=== PATIENT | male | born 1960 | race Caucasian/White ===

== ENCOUNTER 2022-05-28 08:18 | Emergency (ER) | payer OTHER, SELFPAY ==
[2022-05-28 08:24] VITALS: BP 179/87; PULSE 63; RESP 18; TEMP 36.6; O2SAT 95; BMI 31.9
--- NOTE | 2022-05-28 08:27 | ECG_ITS ---
[facility] Test Date: 2022-05-28 Pat Name: Ricki Urbano Department: Room: Gender: Male Rinkman: : 1960 Requested By: Suraj Aguilar Order Number: [id number] Melyssa MD: Kyle Kincaid M.D. Measurements Intervals Kirk Rate: 61 P: 43 MO: 167 QRS: 26 QRSD: 89 T: 60 QT: 390 QTc: 396 Interpretive Statements SINUS RHYTHM No previous ECG available for comparison Electronically Signed On 05-28-2022 21:58:22 CDT by Kyle Kincaid M.D. [email or web address]
[2022-05-28 08:28] VITALS: BP 158/87; BP 173/80; BP 185/90; PULSE 66; PULSE 70; PULSE 76
--- NOTE | 2022-05-28 08:28 | XRR_ITS ---
PROCEDURE INFORMATION: Exam: XR Chest Exam date and time: 05/28/2022 8:50 AM Age: 62 years old Clinical indication: Cough and dyspnea; Additional info: Dyspnea/cough TECHNIQUE: Imaging protocol: Radiologic exam of the chest. Views: 1 view. COMPARISON: No relevant prior studies available. FINDINGS: Lungs: Unremarkable. No consolidation. Pleural spaces: Unremarkable. No pleural effusion. No pneumothorax. Heart/Mediastinum: Unremarkable. No cardiomegaly. Bones/joints: Unremarkable. XR/XR chest 1V portable [id number] IMPRESSION: No acute findings.
--- NOTE | 2022-05-28 08:39 | ED_ITS ---
HPI - Dizziness General: Chief Complaint: Dizziness Stated Complaint: dizzy Time Seen by Provider: 05/28/22 08:26 Source: patient Mode of arrival: ambulatory History of Present Illness: HPI Narrative: 62-year-old male presents with complaints of dizziness. He felt like the room was spinning states he fell legs and make him vomit. He has had a inner ear problem for some time. He denies any fever sweats chills nausea vomiting or diarrhea. No dysuria urgency or frequency. He has not had any chest pain we did note when he initially arrived he was significantly MD elicited complaint: dizziness and lightheadedness Pertinent past history: inner ear problems Onset (ago): hour(s) Severity: moderate Description: room spinning , off-balance and difficulty walking Exacerbating factors: movement/ambulation and change in body position Relieving factors: remaining still Associated symptoms: Reports cough and short of breath; Denies change in hearing, chest pain, chills, diaphoresis, ear discharge, ear pressure, fevers/chills, headache(s), malaise, nausea, nasal congestion, palpitations, rash, syncope, tinnitus, vomiting or weakness Associated neuro symptoms: Deny extremity weakness or facial weakness Review of Systems Const: Denies: fever(s), chills, malaise or diaphoresis ENMT: Denies: ear discharge, change in hearing, tinnitus or nasal congestion Card: Denies: chest pain, palpitations or syncope Resp: Reports: dyspnea, non-productive cough and wheezing; Denies: productive cough GI: Denies: abdominal pain, nausea or vomiting : Denies: flank pain, dysuria, urinary frequency or urinary urgency Skin/Breast: Denies: rash or pruritus Neuro: Denies: headache(s) PFSH ED PFSH: Medical History (Updated 05/28/22 @ 13:40 by Suraj Ordonez DO) Hypertension Physical Exam Const: GENERAL APPEARANCE: cooperative and comfortable ORIENTATION/CONSCIOUSNESS: Yes awake, Yes oriented to person, Yes oriented to place and Yes oriented to time HENMT: COMMON NORMALS: normocephalic, atraumatic and hearing grossly normal bilaterally HEAD & SCALP: normocephalic and atraumatic Resp: COMMON NORMALS: normal respiratory effort, No retractions, No use of accessory muscles and clear to auscultation bilaterally AUSCULTATION: clear to auscultation bilaterally Cardio: COMMON NORMALS: regular rate, regular rhythm and No murmurs present (Cardio) RATE: regular rate RHYTHM: regular rhythm GI: COMMON NORMALS: Soft to palpation and No hepatosplenomegaly present AUSCULTATION: Yes normoactive bowel sounds PALPATION: Yes Soft to palpation, No Tenderness to palpation present (GI), No Guarding due to palpation present (GI) and Yes No hepatosplenomegaly present Extremity: COMMON NORMALS: normal to inspection, capillary refill normal, no clubbing, cyanosis or edema, no calf tenderness and no pedal edema Neuro: SENSORIUM/ORIENTATION: Yes oriented to person, Yes oriented to place and Yes oriented to time OTHER: No focal neurologic deficits Romberg's is negative. Patient is able to walk he has very slight ataxic gait but is able to walk without assistance or falling over. Skin: COMMON NORMALS: no rashes or lesions noted GENERAL SKIN EXAM: no rashes or lesions noted Course Vital Signs: Vital signs: Vital Signs Temperature 97.8 F 05/28/22 08:24 Pulse Rate 77 05/28/22 12:22 Respiratory Rate 15 05/28/22 12:22 Blood Pressure 187/84 05/28/22 11:44 Pulse Oximetry 95 05/28/22 12:22 Oxygen Delivery Me thod Room Air 05/28/22 11:44 MDM - Dizziness Medical Decision Making Patient reports having had this dizziness for some time. Seems little bit worse today gets a true vertiginous-like dizziness he has not actually vomited. He has no specific limb ataxia is very slight difficulty with walking but his Romberg's is essentially negative. His blood pressure was markedly elevated. Also when I first came in the room his heart rate was tracking in the low 40s he was bradycardic most the time is here and he intermittently went in and out of bigeminy. He never had any chest pain. Multiple potential causes for his dizziness including labyrinthitis hypertension arrhythmias. I did consider the possibility of posterior stroke however his CT was negative there is a question of vertebral artery sclerosis on the head CT without but did not look nearly as impressive per the radiologist report on the CTA. He is not currently having symptoms. Asked patient to start atorvastatin and aspirin additionally we will start on amlodipine 5 mg daily we will set him up for a 48-hour Holter monitor recheck his blood pressure in a week. If he has any worsening or changes symptoms return to the emergency room Medical Records I reviewed the patient's medical records. Lab Data I reviewed the patient's lab results. 05/28/22 09:17 05/28/22 09:17 Radiology Impressions Chest X-Ray 05/28/22 08:28 IMPRESSION: No acute findings. Head CT 05/28/22 08:46 IMPRESSION: 1. No acute intracranial hemorrhage or edema. 2. Very mild atrophy and small vessel ischemic disease. No prior infarct. 3. Atherosclerotic calcifications in the distal vertebral arteries and intracranial carotid arteries. Atheromatous burden is more than expected for a patient of this age. Head/Neck CTA 05/28/22 09:23 IMPRESSION: 1. No significant cervical carotid artery stenosis. 2. Increasing plaque through the cavernous and supraclinoid carotid arteries with stenosis approaching 50%. The plaque burden is not quite as significant as suspected on the noncontrast head CT done earlier the same day. 3. Unremarkable [place]. Laboratory Results WBC 12.3 10^3/uL (4.0-10.0) H 05/28/22 09:17 RBC 5.14 10^6/uL (4.1-5.3) 05/28/22 09:17 Hgb 15.8 g/dL (11.7-16.6) 05/28/22 09:17 Hct 47.4 % (42.0-52.0) 05/28/22 09:17 MCV 92.2 fl (80-94) 05/28/22 09:17 MCH 30.7 pg (28.0-34.0) 05/28/22 09:17 MCHC 33.3 g/dL (30.0-36.0) 05/28/22 09:17 RDW 11.6 % (12.1-15.1) L 05/28/22 09:17 Plt Count 259 10^3/cmm (130-400) 05/28/22 09:17 MPV 8.7 fL (7.4-10.4) 05/28/22 09:17 Neut % (Auto) 81.0 % 05/28/22 09:17 Lymph % (Auto) 13.6 % 05/28/22 09:17 Mcdowell % (Auto) 4.4 % 05/28/22 09:17 Eos % (Auto) 0.5 % 05/28/22 09:17 Baso % (Auto) 0.3 % 05/28/22 09:17 Neut # (Auto) 9.96 10^3/uL (1.8-7.7) H 05/28/22 09:17 Lymph # (Auto) 1.7 10^3/uL (0.8-4.8) 05/28/22 09:17 Mcdowell # (Auto) 0.5 10^3/uL (0.2-0.9) 05/28/22 09:17 Eos # (Auto) 0.1 10^3/uL (0.0-0.8) 05/28/22 09:17 Baso # (Auto) 0.0 10^3/uL (0.0-0.1) 05/28/22 09:17 Nucleated RBC % (auto) 0 % 05/28/22 09:17 Nucleated RBCs # 0.0 /100WBC 05/28/22 09:17 Sodium 139 mmol/L (136-145) 05/28/22 09:17 Potassium 4.6 mmol/L (3.5-5.1) 05/28/22 09:17 Chloride 101 mmol/L (98-107) 05/28/22 09:17 Carbon Dioxide 27 mmol/L (22-29) 05/28/22 09:17 Anion Gap 15.6 (5-19) 05/28/22 09:17 BUN 11 mg/dL (8-23) 05/28/22 09:17 Creatinine 0.7 mg/dL (0.7-1.2) 05/28/22 09:17 GFR Calculation 113.5 mL/min (90-130) 05/28/22 09:17 Glucose 172 mg/dL (65-115) H 05/28/22 09:17 Calculated Osmolality 291 mOsm/kg (285-295) 05/28/22 09:17 Calcium 9.2 mg/dL (8.5-10.5) 05/28/22 09:17 Total Bilirubin 0.2 mg/dL (0.15-1.2) 05/28/22 09:17 AST 13 U/L (0-40) 05/28/22 09:17 ALT 13 U/L (0-41) 05/28/22 09:17 Alkaline Phosphatase 88 U/L (40-130) 05/28/22 09:17 Total Protein 7.1 g/dL (6.6-8.7) 05/28/22 09:17 Albumin 4.2 g/dL (3.5-5.2) 05/28/22 09:17 Globulin 2.9 g/dL (1.3-4.6) 05/28/22 09:17 Urine Color Yellow (Yellow) 05/28/22 10:11 Urine Appearance Clear (CLEAR) 05/28/22 10:11 Urine pH 8 (5-7) H 05/28/22 10:11 Ur Specific [place] 1.020 (1.005-1.030) 05/28/22 10:11 Urine Protein Neg (Negative) 05/28/22 10:11 Urine Glucose (UA) 1+ (Normal) H 05/28/22 10:11 Urine Ketones Negative (Negative) 05/28/22 10:11 Urine Blood Neg (Negative) 05/28/22 10:11 Urine Nitrate Negative (Negative) 05/28/22 10:11 Urine Bilirubin Neg (Negative) 05/28/22 10:11 Prot Sulfosalicylic Acd Negative (Negative) 05/28/22 10:11 Urine Urobilinogen Norm mg/dL (Negative) 05/28/22 10:11 Ur Leukocyte Esterase Negative (Negative) 05/28/22 10:11 Discharge Plan Discharge Patient Disposition: Home Clinical Impression: Arrhythmia, Labyrinthitis Condition: Stable Prescriptions: New amlodipine 5 mg tablet 5 mg PO DAILY Qty: 30 0RF aspirin 81 mg tablet,delayed release (DR/EC) 81 mg PO DAILY Qty: 30 0RF atorvastatin 40 mg tablet 40 mg PO DAILY Qty: 30 0RF No Action multivitamin Tablet 1 tab PO DAILY Vitamin B-12 1,000 mcg Tablet 1,000 mcg PO .EVERY 3RD DAY Vitamin C 500 mg Tablet 500 mg PO .EVERY 3RD DAY metformin 1,000 mg Tablet 1,000 mg PO BID sildenafil (pulm.hypertension) 20 mg Tablet 60 - 100 mg PO PRN MDD 3-5 tabs PRN (Reason: Erectile Dysfunction) Vitamin D3 25 mcg (1,000 unit) Tablet 25 mcg PO DAILY Discharge Orders: Discharge ED (Routine); Ordered 05/28/22 Ordered By: Suraj Ordonez Referrals: Bautista Wagner MD [Primary Care Provider] - Discharge Diet: Usual diet Discharge Activity: Increase activity as tolerated Patient Instructions: Opioid Safety, Pain Management Activity Restrictions/Additional Instructions: You are seen today for dizziness. CTA and CT of your head did not show any major abnormalities. Your evaluated for stroke as well as high blood pressure arrhythmia as potential causes of your dizziness. Recommend that you start amlodipine 5 mg daily for your blood pressure. Case management was set you up for an outpatient 48-hour Holter monitor. You should follow-up with your primary care doctor within a week to recheck your blood pressure. If symptoms persist you may need referral to ENT for further evaluation. Also recommend that you start baby aspirin daily as well as atorvastatin 40 mg daily. Coding Level of Care Code ED Rn Social Work for Eloisa Jordan NIH stroke score NIHSS Level Of Consciousness - 1a: 0 Level Of Consciousness Questions - 1b: Both Correct Level Of Consciousness Commands - 1c: Both Correct Best Gaze - 2: Normal Visual Reynolds - 3: No Visual Loss Facial Palsy - 4: Normal Motor Arm Right - 5: No Drift Motor Arm Left - 5: No Drift Motor Leg Right - 6: No Drift Motor Leg Left - 6: No Drift Limb Ataxia - 7: Absent Sensory - 8: Normal Best Language - 9: No Aphasia Dysarthia - 10: Normal Extinction And Inattention - 11: 0 Score Total Score: 0
--- NOTE | 2022-05-28 08:46 | CT_ITS ---
WS: [id number] CT HEAD NONCONTRAST HISTORY: dizziness, nausea, ataxia TECHNIQUE: Contiguous axial imaging performed through the brain in 2.5 mm imaging. Bone and soft tiss ue windows. Sagittal and coronal reformats reviewed. All CT scans at [facility] use at least one of these dose optimization techniques: automated exposure control; mA and/or kV adjustment per pa tient size (includes targeted exams where dose is matched to clinical indication); or iterative recon struction. DLP: 1123.44 mGy.cm COMPARISON: None available. No acute intracranial hemorrhage, midline shift or mass effect. Mild atrophy and mild small vessel ischemic disease. No sulcal effacement or acute infarct. Ventricles: Normal size with no hydrocephalus. No inferior displacement of cerebellar tonsils. Extensive calcifications in the distal vertebral [place] and the intracranial carotid arteries. Paranasal sinuses: Moderate mucoperiosteal thickening throughout the sinuses. Most significant involv ing the maxillary and ethmoid air cells. Mastoid air cells: Well pneumatized. Calvarium and scalp: Skull is intact with no soft tissue edema or swelling. CT/CT head wo con* [id number] IMPRESSION: 1. No acute intracranial hemorrhage or edema. 2. Very mild atrophy and small vessel ischemic disease. No prior infarct. 3. Atherosclerotic calcifications in the distal vertebral arteries and intracr anial carotid arteries. Atheromatous burden is more than expected for a patient of this age.
--- NOTE | 2022-05-28 09:23 | CT_ITS ---
WS: [id number] CT ANGIOGRAM CEREBRAL AND CAROTID ARTERIES HISTORY: posterior stroke TECHNIQUE: CT angiogram is performed of the carotid and cerebral arteries. During arterial injection imaging is obtained from the skull vertex to the aortic arch in 1.25 mm imaging. Coronal and sagittal reformats are submitted. Additional multi planar reformats of the carotid and cerebral arteries are submitted, MIP imaging also reviewed. NASCET criteria utilized. [facility] at least one of these dose optimization techniques: automated exposure control; mA and/or kV adjust ment per patient size (includes targeted exams where dose is matched to clinical indication); or iter ative reconstruction. CONTRAST: Omnipaque 350; 100 mL IV. DLP: 1116.64 mGy.cm COMPARISON: 05/28/[address] head[address] Repeat noncontrast CT head is negative. No acute adverse changes. Carotid Angiogram: Right carotid: Common carotid artery: Arises normally from the innominate artery. No significant plaque or stenosis. Internal carotid artery: No plaque or stenosis. External carotid artery: Patent. Left carotid: Common carotid artery: Arises normally from the aorta. No significant plaque or stenosis. Internal carotid artery: No plaque or stenosis. External carotid artery: Patent. Right vertebral artery: No occlusion. Calcification increases within the distal vertebral artery thro ugh the foramen magnum. Left vertebral artery: Mildly dominant. Calcifications scattered in the distal vertebral artery but n o occlusion. Subclavian arteries: No stenosis or significant abnormality. Upper thorax: Normal. Thyroid gland: Normal. Osseous structures: Mild cervical spondylosis. CEREBRAL ANGIOGRAM: Intracranial vertebral arteries: Scattered plaque with no high-grade stenosis or occlusion. Basilar artery: No significant stenosis or occlusion. No aneurysm. Intracranial Internal carotid arteries: Scattered plaque extends to the petrous segments and extends into the cavernous and supraclinoid segments. There is no occlusion. Approaching 50% stenosis near th e supraclinoid carotid arteries, bilateral. Middle cerebral arteries: Normal. Anterior cerebral arteries and ACOM: Normal. Posterior cerebral arteries and PCOM's: Normal. Dural venous sinuses are normally enhancing. Mastoid air cells: Negative. Paranasal sinuses: Moderate mucoperiosteal thickening in the maxillary and ethmoid sinuses. Normal or bits and globes. Calvarium: Normal. CT/CT angio headneck* [id number] IMPRESSION: 1. No significant cervical carotid artery stenosis. 2. Increasing plaque through the cavernous and supraclinoid carotid arteries w ith stenosis approaching 50%. The plaque burden is not quite as significant as suspected on the noncontrast head CT done earlier the same day. 3. Unremarkable [facility] [place].
--- NOTE | 2022-05-28 09:43 | PC.NURSE ---
attempted to obtain ua pt having blood drawn.
[2022-05-28 09:55] LABS: Basophils % 0.3 %; Eosinophils # 0.1 10^3/uL (0.0-0.8); Eosinophils % 0.5 %; Hematocrit 47.4 % (42.0-52.0); Hemoglobin 15.8 g/dL (11.7-16.6); Lymphocytes # 1.7 10^3/uL (0.8-4.8); Lymphocytes % 13.6 %; Mean Corpuscular HGB Conc 33.3 g/dL (30.0-36.0); Mean Corpuscular Hemoglobin 30.7 pg (28.0-34.0); Mean Corpuscular Volume 92.2 fl (80-94); Mean Platelet Volume 8.7 fL (7.4-10.4); Monocytes # 0.5 10^3/uL (0.2-0.9); Monocytes % 4.4 %; Neutrophils # 9.96 10^3/uL (1.8-7.7); Nucleated Red Blood Cells % 0 %; Platelet Count 259 10^3/cmm (130-400); Red Blood Count 5.14 10^6/uL (4.1-5.3); Red Cell Distribution Width 11.6 % (12.1-15.1); White Blood Count 12.3 10^3/uL (4.0-10.0)
[2022-05-28 10:14] LABS: Alanine Aminotransferase 13 U/L (0-41); Albumin Level 4.2 g/dL (3.5-5.2); Alkaline Phosphatase 88 U/L (40-130); Anion Gap 15.6 (5-19); Aspartate Amino Transferase 13 U/L (0-40); Blood Urea Nitrogen 11 mg/dL (8-23); Calcium 9.2 mg/dL (8.5-10.5); Carbon Dioxide 27 mmol/L (22-29); Chloride 101 mmol/L (98-107); Globulin 2.9 g/dL (1.3-4.6); Glomerular Filtration Rate 113.5 mL/min (90-130); Glucose 172 mg/dL (65-115); Osmolality Calculated 291 mOsm/kg (285-295); Potassium 4.6 mmol/L (3.5-5.1); Sodium 139 mmol/L (136-145); Total Bilirubin 0.2 mg/dL (0.15-1.2); Total Protein 7.1 g/dL (6.6-8.7)
[2022-05-28 10:26] LABS: Add Urine Microscopic? NO; Charge for UA Resulting for Rev
[2022-05-28 10:58] LABS: Urine Appearance Clear (CLEAR); Urine Color Yellow (Yellow)
[2022-05-28 10:59] LABS: Bilirubin Urine Neg (Negative); Blood Urine Neg (Negative); Glucose Urine UA 1+ (Normal); Ketones Urine Negative (Negative); Leukocyte Esterase Urine Negative (Negative); Nitrate Urine Negative (Negative); Protein Urine Neg (Negative); Sulfosalicylic Acid Urine Negative (Negative); Urobilinogen Urine Norm (Negative); pH Urine 8 (5-7)
[2022-05-28] MEDS: iohexol 350 mg/mL 500 mL Btl (per mL) IV (11:08)
[2022-05-28 11:44] VITALS: BP 187/84; PULSE 60; RESP 18; O2SAT 96
[2022-05-28 12:22] VITALS: PULSE 77; RESP 15; O2SAT 95
--- NOTE | 2022-05-31 08:58 | DCPLANNER ---
Addendum entered by Simona Enamorado 06/15/22 13:59: Patient had a follow up appointment scheduled with heart care - patient did attend appointment. Addendum entered by Simona Enamorado 06/03/22 08:32: Patient has a follow up appointment scheduled for Tuesday, June 14, 2022 at 8:30 at [facility] for a halter monitor. Original Note: foundation relations manager had message to schedule a follow up appointment for patient with cardiology. foundation relations manager sent patients information to the front office staff at [facility]. Patients information will be printed and reviewed. Clinic will call patient with appointment information.
== END 2022-05-28 12:23 | disposition home or self-care (01) ==
PROVIDERS: Emergency Provider Family Medicine; PCP Family Medicine
DX: I49.9 Cardiac arrhythmia, unspecified (principal); H83.09 Labyrinthitis, unspecified ear; I10 Essential (primary) hypertension
CPT/HCPCS: 70450; 70496; 70498; 71045; 80053; 81003; 85025; 93005; 99285; Q9967

== ENCOUNTER 2024-07-05 12:39 | Emergency (ER) | payer OTHER, SELFPAY ==
[2024-07-05 12:43] VITALS: BP 197/81; PULSE 57; RESP 17; TEMP 36.4; O2SAT 100; BMI 31.3
--- NOTE | 2024-07-05 12:52 | PC.NURSE ---
PATIENT REFUSES TO BE ON MONITOR FOR VITALS. PATIENT CUSSED AT TRIAGE NURSE TO KEEP THE MONITOR OFF HIM.
[2024-07-05] MEDS: ondansetron 2 mg/ML SDV 2 mL 4 MG IVP (13:47)
[2024-07-05] MEDS: sodium chloride 0.9% 1,000 ML 999 ML IV (13:47)
[2024-07-05] MEDS: morphine 4 mg/mL SDV 1 mL IVP ×2 (13:47→14:56)
[2024-07-05 13:48] VITALS: BP 201/92; PULSE 60; O2SAT 97
[2024-07-05 13:48] LABS: Basophils % 0.2 %; Hematocrit 47.7 % (37-53); Lymphocytes % 8.9 %; Mean Corpuscular HGB Conc 34.2 g/dL (30-55); Mean Corpuscular Hemoglobin 31.2 pg (27-33); Mean Corpuscular Volume 91.4 fl (82-101); Mean Platelet Volume 8.6 fL (7.4-10.4); Monocytes # 0.3 10^3/uL (0.2-0.9); Monocytes % 2.4 %; Nucleated Red Blood Cells % 0 %; Platelet Count 271 10^3/cmm (157-399); Red Blood Count 5.22 10^6/uL (3.85-5.65); Red Cell Distribution Width 11.9 % (12.1-15.1); White Blood Count 11.02 10^3/uL (3.29-11.43)
[2024-07-05 14:08] LABS: Alanine Aminotransferase 20 U/L (0-41); Albumin Level 4.5 g/dL (3.5-5.2); Alkaline Phosphatase 118 U/L (40-130); Anion Gap 21.1 (5-19); Aspartate Amino Transferase 17 U/L (0-40); Blood Urea Nitrogen 10 mg/dL (8-23); Calcium 9.7 mg/dL (8.5-10.5); Carbon Dioxide 23 mmol/L (22-29); Chloride 101 mmol/L (98-107); Creatinine Clr Calc Pharmacy 97.5711; Glomerular Filtration Rate 96.7 mL/min (90-130); Glucose 250 mg/dL (65-115); Lipase 16 U/L (13-60); Osmolality Calculated 299 mOsm/kg (285-295); Potassium 4.1 mmol/L (3.5-5.1); Sodium 141 mmol/L (136-145); Total Bilirubin 0.8 mg/dL (0.15-1.2); Total Protein 7.5 g/dL (6.6-8.7)
--- NOTE | 2024-07-05 14:58 | W.ED.NAVMDI ---
HPI - Nausea/Vomiting/Diarrhea General: Chief complaint: Nausea/Vomiting/Diarrhea Stated complaint: severe abdominal cramping Time Seen by Provider: 07/05/24 12:50 History of Present Illness: This patient is a 64-year-old white male who presents to the emergency department with nausea, vomiting and diarrhea. He has also had severe abdominal cramping. Symptoms started at 5 AM this morning. He has not had a fever. Thinks this may have been caused by eating a can of cake icing last night. Past medical history includes hypertension. Patient is not on any medications. No surgical history. Associated nausea: Yes Associated symtoms: Reports nausea Related Data Home Medications ?Medication ?Instructions ?Recorded ?Confirmed ascorbic acid (vitamin C) 500 mg 500 mg PO .EVERY 3RD DAY 05/28/22 05/28/22 tablet (Vitamin C) cholecalciferol (vitamin D3) 25 25 mcg PO DAILY 05/28/22 05/28/22 mcg (1,000 unit) tablet (Vitamin D3) cyanocobalamin (vitamin B-12) 1,000 mcg PO .EVERY 3RD DAY 05/28/22 05/28/22 1,000 mcg tablet (Vitamin B-12) metformin 1,000 mg tablet 1,000 mg PO BID 05/28/22 05/28/22 multivitamin 1 tab PO DAILY 05/28/22 05/28/22 sildenafil (pulm.hypertension) 20 60 - 100 mg PO PRN PRN Erectile 05/28/22 05/28/22 mg tablet Dysfunction Previous Rx's ?Medication ?Instructions ?Recorded amlodipine 5 mg tablet 5 mg PO DAILY #30 tabs 05/28/22 aspirin 81 mg tablet,delayed 81 mg PO DAILY #30 tabs 05/28/22 release atorvastatin 40 mg tablet 40 mg PO DAILY #30 tabs 05/28/22 dicyclomine 20 mg tablet 20 mg PO QID PRN abdominal pain 07/05/24 #10 tabs ondansetron 4 mg disintegrating 4 mg PO Q6H PRN nausea and 07/05/24 tablet vomiting #20 tabs Allergies Allergy/AdvReac Type Severity Reaction Status Date / Time No Known Allergies Allergy Verified 05/28/22 08:49 Review of Systems General: Reports: 10 or more systems reviewed and unremarkable except in HPI and below GI: Reports: abdominal pain, nausea, vomiting and diarrhea PFSH ED PFSH: Medical History (Updated 07/05/24 @ 14:39 by Alton Herrera MD) Hypertension Physical Exam Const: COMMON NORMALS: no acute distress, patient oriented x3 and no limitations GENERAL APPEARANCE: cooperative and comfortable HENMT: COMMON NORMALS: normocephalic, atraumatic, Normal nasal mucous membranes and turbinates present, moist oral mucous membranes and oropharynx normal HEAD & SCALP: normal to inspection, normocephalic and atraumatic FACE & SINUS: normal facial exam NOSE: Normal nasal mucous membranes and turbinates present Eye: COMMON NORMALS: Equal, round and reactive pupils present, EOMs intact bilaterally and conjunctivae normal GENERAL EYE: appearance normal, both eyes and all related structures CONJUNCTIVA: Yes conjunctivae normal PUPIL: Yes Equal, round and reactive pupils present Neck/C-Spine: COMMON NORMALS: supple and no JVD Chest: COMMONS NORMALS: normal inspection of the chest Resp: COMMON NORMALS: normal respiratory effort and clear to auscultation bilaterally AUSCULTATION: clear to auscultation bilaterally Cardio: COMMON NORMALS: no JVD, regular rate, regular rhythm, No gallops present (Cardio), No murmurs present (Cardio) and No rub (Cardio) RATE: regular rate RHYTHM: regular rhythm GI: COMMON NORMALS: Normal to inspection, nondistended, normoactive bowel sounds present and Soft to palpation (Mild diffuse tenderness.) AUSCULTATION: Yes normoactive bowel sounds PALPATION: Yes Soft to palpation (Mild diffuse tenderness.), No Guarding due to palpation present (GI) and No Rebound tenderness present : COMMON NORMALS: Yes no CVA tenderness BLADDER/KIDNEY EXAM: Yes no CVA tenderness Back/Pelvis: COMMON NORMALS: no CVA tenderness and thoracic and lumbar spine normal to inspection Extremity: COMMON NORMALS: normal to inspection Neuro: COMMON NORMALS: patient oriented x3 and CN's II-XII intact bilaterally Psych: COMMON NORMALS: mental status grossly normal, Normal thought process present and cooperative THOUGHT PROCESS: Normal thought process present Skin: COMMON NORMALS: no rashes or lesions noted, turgor normal and no jaundice GENERAL SKIN EXAM: no rashes or lesions noted and turgor normal Course Vital Signs: Vital signs: Vital Signs Temperature 97.6 F 07/05/24 12:43 Pulse Rate 60 07/05/24 13:48 Respiratory Rate 17 07/05/24 12:43 Blood Pressure 201/92 07/05/24 13:48 Pulse Oximetry 97 07/05/24 13:48 Oxygen Delivery Me thod Room Air 07/05/24 13:48 MDM - Nausea/Vomiting/Diarrhea Medical Decision Making CBC was normal. CMP revealed a blood sugar of 250. Lipase normal at 16. Patient was given a 1 L bolus of normal saline, 4 mg of Zofran IV and 4 mg of morphine IV. States he did get significant relief but the cramping is now returning. Gave another 4 mg of morphine, 4 mg of Imodium and 20 mg of Bentyl. Patient was discharged in stable condition with prescriptions for Zofran and Bentyl. He can take Imodium [id number]. Recommended he push clear liquids only until symptoms subside then advance diet slowly. Follow-up with primary care provider in 2 to 3 days if no improvement. Lab Data 07/05/24 13:38 07/05/24 13:38 Laboratory Results WBC 11.02 10^3/uL (3.29-11.43) 07/05/24 13:38 RBC 5.22 10^6/uL (3.85-5.65) 07/05/24 13:38 Hgb 16.30 g/dL (11.27-16.99) 07/05/24 13:38 Hct 47.7 % (37-53) 07/05/24 13:38 MCV 91.4 fl (82-101) 07/05/24 13:38 MCH 31.2 pg (27-33) 07/05/24 13:38 MCHC 34.2 g/dL (30-55) 07/05/24 13:38 RDW 11.9 % (12.1-15.1) L 07/05/24 13:38 Plt Count 271 10^3/cmm (157-399) 07/05/24 13:38 MPV 8.6 fL (7.4-10.4) 07/05/24 13:38 Neut % (Auto) 88.0 % 07/05/24 13:38 Lymph % (Auto) 8.9 % 07/05/24 13:38 Grant % (Auto) 2.4 % 07/05/24 13:38 Eos % (Auto) 0.0 % 07/05/24 13:38 Baso % (Auto) 0.2 % 07/05/24 13:38 Neut # (Auto) 9.70 10^3/uL (1.8-7.7) H 07/05/24 13:38 Lymph # (Auto) 1.0 10^3/uL (0.8-4.8) 07/05/24 13:38 Grant # (Auto) 0.3 10^3/uL (0.2-0.9) 07/05/24 13:38 Eos # (Auto) 0.0 10^3/uL (0.0-0.8) 07/05/24 13:38 Baso # (Auto) 0.0 10^3/uL (0.0-0.1) 07/05/24 13:38 Nucleated RBC % (auto) 0 % 07/05/24 13:38 Nucleated RBCs # 0.0 /100WBC 07/05/24 13:38 Sodium 141 mmol/L (136-145) 07/05/24 13:38 Potassium 4.1 mmol/L (3.5-5.1) 07/05/24 13:38 Chloride 101 mmol/L (98-107) 07/05/24 13:38 Carbon Dioxide 23 mmol/L (22-29) 07/05/24 13:38 Anion Gap 21.1 (5-19) H 07/05/24 13:38 BUN 10 mg/dL (8-23) 07/05/24 13:38 Creatinine 0.8 mg/dL (0.7-1.2) 07/05/24 13:38 GFR Calculation 96.7 mL/min (90-130) 07/05/24 13:38 Glucose 250 mg/dL (65-115) H 07/05/24 13:38 Calculated Osmolality 299 mOsm/kg (285-295) H 07/05/24 13:38 Calcium 9.7 mg/dL (8.5-10.5) 07/05/24 13:38 Total Bilirubin 0.8 mg/dL (0.15-1.2) 07/05/24 13:38 AST 17 U/L (0-40) 07/05/24 13:38 ALT 20 U/L (0-41) 07/05/24 13:38 Alkaline Phosphatase 118 U/L (40-130) 07/05/24 13:38 Total Protein 7.5 g/dL (6.6-8.7) 07/05/24 13:38 Albumin 4.5 g/dL (3.5-5.2) 07/05/24 13:38 Globulin 3.0 g/dL (1.3-4.6) 07/05/24 13:38 Lipase 16 U/L (13-60) 07/05/24 13:38 No radiology studies performed this visit Discharge Plan Discharge Patient Disposition: Home Clinical Impression: Gastroenteritis, Food poisoning Condition: Stable Prescriptions: New dicyclomine 20 mg tablet 20 mg PO QID PRN (Reason: abdominal pain) Qty: 10 0RF ondansetron 4 mg tablet,disintegrating 4 mg PO Q6H PRN (Reason: nausea and vomiting) Qty: 20 0RF No Action multivitamin Tablet 1 tab PO DAILY Vitamin B-12 1,000 mcg Tablet 1,000 mcg PO .EVERY 3RD DAY Vitamin C 500 mg Tablet 500 mg PO .EVERY 3RD DAY metformin 1,000 mg Tablet 1,000 mg PO BID sildenafil (pulm.hypertension) 20 mg Tablet 60 - 100 mg PO PRN MDD 3-5 tabs PRN (Reason: Erectile Dysfunction) Vitamin D3 25 mcg (1,000 unit) Tablet 25 mcg PO DAILY amlodipine 5 mg tablet 5 mg PO DAILY Qty: 30 0RF aspirin 81 mg tablet,delayed release (DR/EC) 81 mg PO DAILY Qty: 30 0RF atorvastatin 40 mg tablet 40 mg PO DAILY Qty: 30 0RF Discharge Orders: Discharge ED (Routine); Ordered 07/05/24 Ordered By: Alton Herrera Referrals: Bautista Wagner MD [Primary Care Provider, Family Practice] Patient Instructions: Gastroenteritis (ED) Activity Restrictions/Additional Instructions: Push clear liquids only until symptoms subside then advance diet slowly. You can take Imodium [id number] if the diarrhea is severe. This should also help with cramping. Follow-up with a primary care provider in 2 to 3 days if no improvement. Print Language: [place] Coding Level of Care Code ED [employer] for Eloisa Jordan
[2024-07-05] MEDS: dicyclomine 20 mg Tablet PO (15:00)
[2024-07-05 15:42] VITALS: BP 143/77; PULSE 81; O2SAT 92
== END 2024-07-05 15:43 | disposition home or self-care (01) ==
PROVIDERS: Emergency Provider Emergency Medicine; PCP Family Medicine
DX: K52.9 Noninfective gastroenteritis and colitis, unspecified (principal); A05.9 Bacterial foodborne intoxication, unspecified; Z79.82 Long term (current) use of aspirin; Z79.84 Long term (current) use of oral hypoglycemic drugs
CPT/HCPCS: 36415; 80053; 83690; 85025; 96361; 96374; 96375; 96376; 99284; J2270; J2405; J7030; J9999